=== PATIENT | male | born 1980 | race Caucasian/White ===

== ENCOUNTER 2018-03-02 22:02 | Emergency (ER) | payer SELFPAY ==
[2018-03-02 22:50] LABS: Urine Blood NEGATIVE (NEG); Urine Glucose NEGATIVE (NEG); Urine Protein NEGATIVE (NEG)
[2018-03-02 22:50] LABS: Absolute Lymphocytes (CBC) 3.1 K/uL (0.7-4.9); Absolute Monocytes 0.9 K/uL (0.1-1.3); Absolute Neutrophil 5.6 K/uL (1.8-8.0); Basophils % 0.8 % (0-1.3); Eosinophils % 3.6 % (0-4.4); Hematocrit 40.9 % (39.6-49.0); Lymphocytes % 31.1 % (15.3-44.8); MCH 27.7 pg (27.0-35.0); MCV 83.2 fL (80-100); MPV 9.1 fL (7.6-11.3); Monocytes % 8.8 % (3.3-12.3); RBC Red Blood Cell Count 4.92 M/uL (4.33-5.43)
[2018-03-02 22:55] LABS: Protime INR 1.11
[2018-03-02 23:05] LABS: Barbiturates NEGATIVE (NEGATIVE); Benzodiazepines POSITIVE (NEGATIVE); Cocaine NEGATIVE (NEGATIVE); METHAMPHETAM NEGATIVE (NEGATIVE); Methadone NEGATIVE (NEGATIVE); Opiates NEGATIVE (NEGATIVE); Phencyclidine NEGATIVE (NEGATIVE); THC Cannibis POSITIVE (NEGATIVE)
[2018-03-02 23:23] LABS: ALT/SGPT 57 U/L (12-78); AST/SGOT 28 U/L (15-37); Albumin 4.3 g/dL (3.4-5.0); Alcohol Serum/Plasma < 3 mg/dL (0-3); Alkaline Phosphatase 93 U/L (45-117); BUN Blood Urea Nitrogen 12 mg/dL (7-18); Bicarbonate 31 mmol/L (21-32); Bilirubin Direct < 0.1 mg/dL (0-0.2); Bilirubin Total 0.4 mg/dL (0.2-1.0); Glucose Level 80 mg/dL (74-106); Potassium 3.2 mmol/L (3.5-5.1); Protein, Total 8.4 g/dL (6.4-8.2); Sodium Level 140 mmol/L (136-145)
--- NOTE | 2018-03-03 02:26 | EDPHYS ---
Physician Documentation [facility] Name: Boris Banuelos Age: 37 yrs Sex: Male : 1980 Arrival Date: 03/02/2018 Time: 22:12 Bed 5 Private MD: ED Physician Jose G Luke HPI: 03/03 00:09 This 37 yrs old Male presents to ER via Ambulatory with complaints of jr8 overdose. 00:09 Onset: The symptoms/episode began/occurred acutely, today. Past psychiatric history: jr8 Prior diagnosis: depression, Psychiatric medications include: Xanax, cymbalta. Associated signs and symptoms: The patient has no apparent associated signs or symptoms. Severity of symptoms: At their worst the symptoms were moderate in the emergency department the symptoms are unchanged. The patient has experienced a previous episode. The patient has not recently seen a physician. Patient stated that he has been having a hard time recently because of family problems. Stated that he could not tolerate it anymore and just wanted to reset and feel better. Stated that he took a number of his xanax in attempt to help him relax. Denies wanting to kill himself . Historical: - Allergies: 03/02 22:20 No Known Allergies; ak1 - PMHx: 22:20 Depression; Anxiety; ak1 - PSHx: 22:20 back sx; right eye sx; sinus sx; ak1 - Immunization history:: Adult Immunizations unknown. - Social history:: Smoking status: Patient/guardian denies using tobacco. - Ebola Screening: : No symptoms or risks identified at this time. ROS: 03/03 00:09 Eyes: Negative for injury, pain, redness, and discharge, ENT: Negative for injury, jr8 pain, and discharge, Neck: Negative for injury, pain, and swelling, Cardiovascular: Negative for chest pain, palpitations, and edema, Respiratory: Negative for shortness of breath, cough, wheezing, and pleuritic chest pain, Abdomen/GI: Negative for abdominal pain, nausea, vomiting, diarrhea, and constipation, Back: Negative for injury and pain, MS/Extremity: Negative for injury and deformity, Skin: Negative for injury, rash, and discoloration, Neuro: Negative for headache, weakness, numbness, tingling, and seizure. Psych: Positive for depression, Negative for suicide gesture, suicidal ideation. Exam: 00:09 Eyes: Pupils equal round and reactive to light, extra-ocular motions intact. Lids and jr8 lashes normal. Conjunctiva and sclera are non-icteric and not injected. Cornea within normal limits. Periorbital areas with no swelling, redness, or edema. ENT: Nares patent. No nasal discharge, no septal abnormalities noted. Tympanic membranes are normal and external auditory canals are clear. Oropharynx with no redness, swelling, or masses, exudates, or evidence of obstruction, uvula midline. Mucous membranes moist. Neck: Trachea midline, no thyromegaly or masses palpated, and no cervical lymphadenopathy. Supple, full range of motion without nuchal rigidity, or vertebral point tenderness. No Meningismus. Cardiovascular: Regular rate and rhythm with a normal S1 and S2. No gallops, murmurs, or rubs. Normal PMI, no JVD. No pulse deficits. Respiratory: Lungs have equal breath sounds bilaterally, clear to auscultation and percussion. No rales, rhonchi or wheezes noted. No increased work of breathing, no retractions or nasal flaring. Abdomen/GI: Soft, non-tender, with normal bowel sounds. No distension or tympany. No guarding or rebound. No evidence of tenderness throughout. Back: No spinal tenderness. No costovertebral tenderness. Full range of motion. Skin: Warm, dry with normal turgor. Normal color with no rashes, no lesions, and no evidence of cellulitis. MS/ Extremity: Pulses equal, no cyanosis. Neurovascular intact. Full, normal range of motion. Neuro: Awake and alert, GCS 15, oriented to person, place, time, and situation. Cranial nerves II-XII grossly intact. Motor strength 5/5 in all extremities. Sensory grossly intact. Cerebellar exam normal. Normal gait. 00:09 Psych: Behavior/mood is cooperative, depressed, Affect is calm, Oriented to person, place, time, Patient has no thoughts/intents to harm self or others. Judgement / Insight is normal. Memory is normal. Delusions/hallucinations are not present. Vital Signs: 03/02 22:20 BP 140 / 97; Pulse 104; Resp 18; Temp 98.1(TE); Pulse Ox 99% on R/A; Weight 81.65 kg ak1 (R); Height 5 ft. 9 in. (175.26 cm) (R); Pain 0/10; 22:37 BP 125 / 88; Pulse 97; Resp 18; Pulse Ox 98% on R/A; mt 23:34 BP 124 / 82; Pulse 78; Resp 14; Pulse Ox 95% on R/A; mt 03/03 00:58 BP 130 / 86; rv 01:18 BP 121 / 82; Pulse 74; Resp 18; Pulse Ox 97% on R/A; mt 01:47 BP 123 / 97; Pulse 62; Resp 15; Pulse Ox 100% on R/A; mt 03/02 22:20 Body Mass Index 26.58 (81.65 kg, 175.26 cm) ak1 MDM: 03/02 22:15 Patient medically screened. jr8 03/03 00:09 Data reviewed: vital signs, nurses notes, lab test result(s), EKG. Data interpreted: jr8 Pulse oximetry: on room air is 95 %. Interpretation: normal. Counseling: I had a detailed discussion with the patient and/or guardian regarding: the historical points, exam findings, and any diagnostic results supporting the discharge/admit diagnosis, lab results, the need for outpatient follow up, a family practitioner. ED course: After evaluation of patient. I do not believe patient is suicidal at this time. Patient understands what he did is irrational and needs to find better coping mechanisms. Truly does not want to kill himself at this time. Will observe patient for the next few hours to make sure he has no mental or physical deterioration. If stable will go home to f/u with PCP . 02:21 ED course: Patient without FIELD OPERATIONS TECHNICIAN depression or respiratory depression. Easily aroused. jr8 Hemodynamically stable. Has been in ED for over 4 hours now. Will send home to follow up with PCP . 03/02 22:31 Order name: Acetaminophen; Complete Time: 00:03 03/02 22:31 Order name: Basic Metabolic Panel; Complete Time: 00:03 03/02 22:31 Order name: CBC with Diff; Complete Time: 22:54 03/02 22:31 Order name: ETOH Level; Complete Time: 00:03 03/02 22:31 Order name: Hepatic Function; Complete Time: 00:03 03/02 22:31 Order name: PT-INR; Complete Time: 00:03 03/02 22:31 Order name: Ptt, Activated; Complete Time: 00:03 03/02 22:31 Order name: Salicylate; Complete Time: 00:03/02 22:31 Order name: Urine Drug Screen; Complete Time: 00:03/02 22:31 Order name: EKG; Complete Time: 22:32 03/02 22:31 Order name: EKG - Nurse/Tech; Complete Time: :32 03/02 22:31 Order name: IV Saline Lock; Complete Time: :32 03/02 22:31 Order name: Labs collected and sent; Complete Time: :32 03/02 22:48 Order name: Urine Dipstick--Ancillary (enter results); Complete Time: 22: 03/02 22:31 Order name: Urine Dipstick-Ancillary (obtain specimen); Complete Time: 22:32 Administered Medications: No medications were administered Disposition: 09:00 Co-signature as Attending Physician, Jose G Luke MD I agree with the assessment and [facility] plan of care. Disposition: 03/03/18 02:25 Discharged to Home. Impression: Adverse effect of benzodiazepines. - Condition is Stable. - Discharge Instructions: Helping Someone Who is Suicidal. - Medication Reconciliation Form, Thank You Letter, Antibiotic Education, Prescription Opioid Use form. - Follow up: Private Physician; When: 2 - 3 days; Reason: Recheck today's complaints, Continuance of care, Re-evaluation by your physician. - Problem is new. - Symptoms have improved. Signatures: Dispatcher [employer] Jose G Sánchez MD MD cha Roszak, Josh, PA PA jr8 Delores Arias RN RN ak1 Epi Peraza RN RN rv Corrections: (The following items were deleted from the chart) 02:53 02:25 03/03/2018 02:25 Discharged to Home. Impression: Adverse effect of rv benzodiazepines. Condition is Stable. Forms are Medication Reconciliation Form, Thank You Letter, Antibiotic Education, Prescription Opioid Use. Follow up: Private Physician; When: 2 - 3 days; Reason: Recheck today's complaints, Continuance of care, Re-evaluation by your physician. Problem is new. Symptoms have improved. jr8
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
--- NOTE | 2018-03-03 06:33 | EKG ---
Test Date: 2018-03-02 Test Time: 22:15:58 Fly Finisher: MEASUREMENT RESULTS: Intervals: Rate: 93 DE: 152 QRSD: 86 QT: 340 QTc: 422 [place]: P: 64 DE: 152 QRS: 53 T: 60 INTERPRETIVE STATEMENTS: Normal sinus rhythm Normal ECG No previous ECG available for comparison Electronically Signed On 03-03-18 06:32:38 CDT by Lion Coleman
== END 2018-03-03 02:53 | disposition home or self-care (01) ==
LOC: ER 22:02
DX: F32.9 Major depressive disorder, single episode, unspecified (principal); T42.4X5A Adverse effect of benzodiazepines, initial encounter
CPT/HCPCS: 36415; 80048; 80076; 80307; 80320; 80329; 81003; 85025; 85610; 85730; 93005; 99284